=== PATIENT | female | born 1955 | race Caucasian/White ===

== ENCOUNTER → 2016-10-24 | Outpatient (REF) | payer OTHER ==
[~2016-10-24] MED LIST: AMLO5TAB2 PO; CALC600T57 PO; CHLO5CAP PO; MIRA33504 PO; PANT40TA2 PO; PRAV40TA2 PO; PROBCAP4 PO; SERT50TA PO; XANA0.5T PO
== END ==
LOC: M LAB REF 12:08
PROVIDERS: ATTEND Family Medicine
DX: D51.9 Vitamin B12 deficiency anemia, unspecified (principal)

== ENCOUNTER → 2017-03-16 | Outpatient (CLI) | payer OTHER ==
[~2017-03-16] MED LIST changes: -CHLO5CAP PO; +CHLO5CAP37 PO
--- NOTE | 2017-03-16 12:57 | REPMRS ---
Patient History The patient states she had a clinical breast exam today. Patient has history of endometrial cancer at age 25. Family history of unknown cancer in mother at age 54 and unknown cancer in brother at age 54. Took hormonal contraceptives for 2 months. Digital Mammo Screening Bilat: March 16, 2017 - Exam #: [id number] Bilateral CC and MLO view(s) were taken. Technologist: Angelina Morrison, Technologist Prior study comparison: February 26, 2016, bilateral digital mammo screening bilat performed at [facility]. February 23, 2015, bilateral digital mammo screening bilat performed at [facility]. FINDINGS: There are scattered fibroglandular densities. There has been no change in the appearance of the mammogram from the prior studies. There is a mild amount of residual fibroglandular tissue which is fairly symmetric. There is no interval development of dominant mass, architectural distortion, or clustered microcalcification suggestive of malignancy. ASSESSMENT: BI-RADS/ACR category 1 mammogram. Negative. Recommendation Routine screening mammogram in 1 year (for women over age 40). This mammogram was interpreted with the aid of an FDA-approved computer-aided dectection system. Electronically Signed By: Dilan Maldonado MD 03/16/17 [id number]
== END ==
LOC: M RAD 11:34
PROVIDERS: ATTEND Nurse Practitioner Women's Health
DX: Z12.31 Encounter for screening mammogram for malignant neoplasm of breast (principal)

== ENCOUNTER → 2017-05-12 | Outpatient (CLI) | payer OTHER ==
--- NOTE | 2017-05-12 15:51 | REP ---
PA and lateral chest: Comparison is 03/21/2016. Lung hernandez are significantly hyperinflated. This is chronic and unchanged. There are no infiltrates, effusions, masses or nodules. Cardiac size is normal. The lauren, mediastinum, and bony thorax are unremarkable. Impression: Chronic hyperinflation, possibly related to chronic lung disease. Otherwise, negative PA and lateral chest. Signed by Dilan Crisostomo MD 05/12/2017 03:44 P
== END ==
LOC: M RAD 13:30
PROVIDERS: ATTEND Family Medicine
DX: R05 Cough (principal)

== ENCOUNTER → 2018-03-22 | Outpatient (CLI) | payer OTHER | LOC: M RAD 10:07 | DX: Z12.31 Encounter for screening mammogram for malignant neoplasm of breast (principal) ==

== ENCOUNTER → 2018-05-19 | Outpatient (CLI) | payer OTHER ==
[~2018-05-19] MED LIST changes: -AMLO5TAB2 PO; +AMLO5TAB4 PO; -PANT40TA2 PO; +PANT40TA3 PO
--- NOTE | 2018-05-19 18:18 | REP ---
Clinical: Cough . Comparison: 05/12/2017 . Technique: PA and lateral. Findings: The mediastinum and cardiac silhouette are normal. The lung hernandez demonstrate chronic stable changes of the without acute consolidation, effusion, or pneumothorax. The skeletal structures are intact and normal. Impression: 1. No acute cardiopulmonary process. Electronically Signed by Duran Hidalgo MD 05/19/2018 06:09 P
== END ==
LOC: M LAB 13:54
PROVIDERS: ATTEND Family Medicine
DX: R05 Cough (principal)

== ENCOUNTER → 2018-10-07 | Outpatient (CLI) | payer OTHER ==
[~2018-10-07] MED LIST changes: -AMLO5TAB4 PO; +AMLO5TAB6 PO; +SERT-141 PO; -SERT50TA PO
--- NOTE | 2018-10-07 16:55 | REP ---
Foot series: Four views: History: Pain. Findings: Four views of the left foot show overall normal mineralization. No erosive changes seen. Bones joints and soft tissues are unremarkable. Impression: Negative radiographs of the left foot. Electronically Signed by Cas Denton MD 10/08/2018 07:58 A
== END ==
LOC: M WUC 10:26
PROVIDERS: ATTEND Physician Assistant
DX: M79.672 Pain in left foot (principal)

== ENCOUNTER → 2018-12-11 | Outpatient (CLI) | payer OTHER ==
--- NOTE | 2018-12-11 10:38 | REP ---
Right great toe series: Four views. History: Pain. Findings: Four views of the right great toe show no evidence of fracture or erosive change. Soft tissues are unremarkable. Impression: No acute bony abnormality. Electronically Signed by Cas Denton MD 12/11/2018 10:30 A
== END ==
LOC: M WUC 10:12
PROVIDERS: ATTEND Physician Assistant
DX: S90.211A Contusion of right great toe with damage to nail, initial encounter (principal); X58.XXXA Exposure to other specified factors, initial encounter; Y92.89 Other specified places as the place of occurrence of the external cause

== ENCOUNTER → 2019-04-04 | Outpatient (CLI) | payer OTHER ==
--- NOTE | 2019-04-04 15:39 | REPMRS ---
Patient History The patient states she had a clinical breast exam in 2018. Family history of unknown cancer at age 54 in mother, unknown cancer at age 54 in brother. Took hormonal contraceptives for 2 months. Digital Mammo Screening Bilat: April 04, 2019 - Exam #: [id number] Bilateral CC and MLO view(s) were taken. Technologist: Snehal Omalley, Technologist Prior study comparison: March 22, 2018, bilateral digital mammo screening bilat performed at [facility]. March 16, 2017, bilateral digital mammo screening bilat performed at [facility]. February 26, 2016, bilateral digital mammo screening bilat performed at [facility]. FINDINGS: There are scattered fibroglandular densities. There has been no change in the appearance of the mammogram from the prior studies. There is a mild amount of scattered fibroglandular density which is fairly symmetric. There is no interval development of dominant mass, architectural distortion, or grouped microcalcification suggestive of malignancy. 3-D tomosynthesis shows no additional findings. Assessment: BI-RADS/ACR category 1 mammogram. Negative Mammogram. Recommendation Routine screening mammogram of both breasts in 1 year (for women over age 40). This patient's Lifetime Breast Cancer Risk is estimated at 6.3 %. This mammogram was interpreted with the aid of an FDA-approved computer-aided dectection system. Electronically Signed By: Emerson Denton MD 04/04/19 [id number]
== END ==
LOC: M RAD 11:46
PROVIDERS: ATTEND Nurse Practitioner Women's Health
DX: Z12.31 Encounter for screening mammogram for malignant neoplasm of breast (principal)

== ENCOUNTER → 2020-05-28 | Outpatient (CLI) | payer OTHER ==
[~2020-05-28] MED LIST changes: +AMLO1TAB24 PO; -AMLO5TAB6 PO; +PANT40TA29 PO; -PANT40TA3 PO
--- NOTE | 2020-05-28 11:35 | REP ---
INDICATION: STRAIN COMPARISON: None. TECHNIQUE: Internal rotation, external rotation, and Y view. FINDINGS: Osteopenia and age-related degenerative changes noted. No acute fracture or dislocation. Acromioclavicular and glenohumeral joints are intact. IMPRESSION: Mild osteopenia and age-related changes. <Electronically signed by Duran Hidalgo > 05/28/20 [id number]
--- NOTE | 2020-05-28 11:36 | REP ---
INDICATION: STRAIN COMPARISON: None. TECHNIQUE: AP, lateral, flexion/extension, bilateral oblique, and open-mouth views. FINDINGS: Osteopenia and moderate multilevel disc osteophyte complexes are appreciated. Findings include endplate sclerosis, marginal osteophytosis, disc space narrowing and facet arthropathy. Alignment is relatively maintained. No acute fracture/compression injury or subluxation. Open mouth view demonstrates normal C1-C2 articulation and odontoid process. IMPRESSION: Moderate multilevel degenerative spondylosis. <Electronically signed by Duran Hidalgo > 05/28/20 [id number]
== END ==
LOC: M WUC 10:49
PROVIDERS: ATTEND Physician Assistant
DX: M47.812 Spondylosis without myelopathy or radiculopathy, cervical region (principal); M89.8X8 Other specified disorders of bone, other site; M19.011 Primary osteoarthritis, right shoulder

== ENCOUNTER → 2021-07-11 | Outpatient (CLI) | payer MEDICARE, OTHER | LOC: M WHC 10:27 | PROVIDERS: ATTEND Family Medicine | DX: Z12.31 Encounter for screening mammogram for malignant neoplasm of breast (principal); R92.2 Inconclusive mammogram ==

== ENCOUNTER → 2021-08-17 | Outpatient (CLI) | payer MEDICARE, OTHER ==
[~2021-08-17] MED LIST changes: +AMLO1TAB25 PO; +FAMO40TA3 PO; +MONT10TA97 PO; +SYMB80INH INH
== END ==
LOC: M LABSMTC 09:37
PROVIDERS: ATTEND Anesthesiology
DX: Z01.818 Encounter for other preprocedural examination (principal); Z20.822 Contact with and (suspected) exposure to COVID-19

== ENCOUNTER → 2021-12-03 | Outpatient (CLI) | payer MEDICARE, OTHER ==
[2021-12-03 10:56] LABS: ALBUMIN 3.7 GM/DL (3.2-5.2); ALT/SGPT 13 U/L (12-78); BILIRUBIN,TOTAL 0.5 MG/DL (0.2-1.0); BLOOD UREA NITROGEN 8 MG/DL (7-18); CARBON DIOXIDE LEVEL 28 MEQ/L (21-32); CHLORIDE LEVEL 107 MEQ/L (98-107); CHOLESTEROL LEVEL 208 MG/DL (<200); CHOLESTEROL RISK RATIO 3.014 (<5); CREATININE FOR GFR 0.77 MG/DL (0.55-1.30); GLOMERULAR FILTRATION RATE > 60.0 (>45); GLUCOSE, FASTING 93 MG/DL (70-100); HDL CHOLESTEROL 69 MG/DL (>40); LDL CHOLESTEROL 122 MG/DL (<100); NON-HDL-C 139 MG/DL; POTASSIUM SERUM 3.9 MEQ/L (3.5-5.1); SODIUM LEVEL 141 MEQ/L (136-145); TOTAL PROTEIN 6.9 GM/DL (6.4-8.2); TRIGLYCERIDES LEVEL 83 MG/DL (<150)
== END ==
LOC: M WUC 08:05
PROVIDERS: ATTEND Family Medicine
DX: I10 Essential (primary) hypertension (principal); E78.00 Pure hypercholesterolemia, unspecified

== ENCOUNTER → 2022-03-03 | Outpatient (CLI) | payer MEDICARE, OTHER ==
[2022-03-03 20:43] LABS: COMPLEMENT C3 128 MG/DL (90-180); COMPLEMENT C4 30 MG/DL (10-40)
== END ==
LOC: M WUC 15:34
PROVIDERS: ATTEND Ophthalmology
DX: H50.52 Exophoria (principal)

== ENCOUNTER → 2022-03-18 | Outpatient (REF) | payer MEDICARE, OTHER ==
[~2022-03-18] MED LIST changes: +FLUT0.003
[2022-03-18 13:46] LABS: BLOOD UREA NITROGEN 8 MG/DL (7-18); CREATININE FOR GFR 0.67 MG/DL (0.55-1.30); GLOMERULAR FILTRATION RATE > 60.0 (>45)
== END ==
LOC: M LABWUC 11:54
PROVIDERS: ATTEND Ophthalmology
DX: H50.52 Exophoria (principal)

== ENCOUNTER → 2022-03-21 | Outpatient (CLI) | payer MEDICARE, OTHER ==
[~2022-03-21] MED LIST changes: +PROHANCE 279.3MG/ML 15ML VIAL ONE
== END ==
LOC: M PLAIMG 10:01
PROVIDERS: ATTEND Ophthalmology
DX: H50.52 Exophoria (principal); I63.81 Other cerebral infarction due to occlusion or stenosis of small artery
CPT/HCPCS: 70543; 70553; A9576

== ENCOUNTER → 2022-03-24 | Outpatient (CLI) | payer MEDICARE, OTHER ==
[~2022-03-24] MED LIST changes: -PROHANCE 279.3MG/ML 15ML VIAL ONE
== END ==
LOC: M LABSMTC 09:38
PROVIDERS: ATTEND Anesthesiology
DX: Z01.812 Encounter for preprocedural laboratory examination (principal); Z20.822 Contact with and (suspected) exposure to COVID-19

== ENCOUNTER 2022-03-27 07:23 | Day surgery (SDC) | payer MEDICARE, OTHER ==
[~2022-03-27] VITALS: Ht 154.9 cm; Wt 58.1 kg
[~2022-03-27 07:23] MED LIST changes: +NS 1,000 ML IV ONE
[2022-03-27] MEDS ORDERED: propofoL 200 MG/20 ML VIAL As Ordered ONE (08:38)
[2022-03-27] MEDS ORDERED: LIDOCAINE 2% 100MG/5ML SDV (FOR ANES.) As Ordered ONE (08:38)
[2022-03-27 09:12] VITALS: BP 111/56
== END 2022-03-27 09:25 | disposition home or self-care (01) ==
LOC: M OPP 07:23
PROVIDERS: ATTEND Surgery
DX: Z12.11 Encounter for screening for malignant neoplasm of colon (principal); Z86.010 Personal history of colon polyps; Z79.51 Long term (current) use of inhaled steroids; Z79.899 Other long term (current) drug therapy; Z88.5 Allergy status to narcotic agent; F42.9 Obsessive-compulsive disorder, unspecified; E78.00 Pure hypercholesterolemia, unspecified; I10 Essential (primary) hypertension; L43.9 Lichen planus, unspecified; F41.9 Anxiety disorder, unspecified; F17.200 Nicotine dependence, unspecified, uncomplicated; Z85.42 Personal history of malignant neoplasm of other parts of uterus; Z85.71 Personal history of Hodgkin lymphoma; Z86.16 Personal history of COVID-19; Z80.49 Family history of malignant neoplasm of other genital organs; Z80.7 Family history of other malignant neoplasms of lymphoid, hematopoietic and related tissues; Z80.8 Family history of malignant neoplasm of other organs or systems

== ENCOUNTER → 2022-03-28 | Outpatient (CLI) | payer MEDICARE, OTHER ==
[~2022-03-28] MED LIST changes: -NS 1,000 ML IV ONE
== END ==
LOC: M WHC 11:04
PROVIDERS: ATTEND Ophthalmology
DX: H50.52 Exophoria (principal); I65.23 Occlusion and stenosis of bilateral carotid arteries

== ENCOUNTER → 2022-07-14 | Outpatient (CLI) | payer MEDICARE, OTHER | LOC: M WHC 09:09 | PROVIDERS: ATTEND Family Medicine | DX: Z12.31 Encounter for screening mammogram for malignant neoplasm of breast (principal) ==

== ENCOUNTER → 2022-07-15 | Outpatient (CLI) | payer MEDICARE, OTHER | LOC: M RAD 08:39 | PROVIDERS: ATTEND Family Medicine | DX: F17.211 Nicotine dependence, cigarettes, in remission (principal) ==

== ENCOUNTER 2023-05-18 05:41 | Observation (INO) | payer MEDICARE, OTHER ==
[~2023-05-18] VITALS: Ht 157.5 cm; Wt 60.7 kg
[2023-05-18] MEDS ORDERED: ALBU6.7H6 INH (05:48)
[2023-05-18] MEDS ORDERED: ASPI-161 PO (05:48)
[2023-05-18] MEDS ORDERED: IPRATROPIUM 0.5MG/ALBUTEROL 2.5MG INH SOL UD 3ML (DUONEB) NEB ONE (06:35)
[2023-05-18] MEDS ORDERED: ACETAMINOPHEN 325 MG TAB PO ONE (07:10)
[2023-05-18 07:42] LABS: BASO # 0.1 10^3/uL (0.0-0.2); BASO % 0.7 % (0.0-1.0); EOS # 0.5 10^3/uL (0.0-0.5); EOS % 5.1 % (0.0-3.0); HEMATOCRIT 42.3 % (36.0-47.0); HEMOGLOBIN 14.4 g/dl (12.0-15.5); LYMPH # 1.3 10^3/uL (1.5-5.0); LYMPH % 14.3 % (24.0-44.0); MEAN CORPUSCULAR HEMOGLOBIN 31.1 pg (27.0-33.0); MEAN CORPUSCULAR VOLUME 91.4 fl (80.0-96.0); MONO # 1.4 10^3/uL (0.0-0.8); MONO % 14.4 % (2.0-8.0); NEUTROPHILS # 6.1 10^3/uL (1.5-8.5); NEUTROPHILS % 65.3 % (36.0-66.0); PLATELET COUNT, AUTOMATED 261 10^3/uL (150-450); RED BLOOD COUNT 4.63 10^6/uL (4.00-5.40); WHITE BLOOD COUNT 9.4 10^3/uL (4.0-10.0)
[2023-05-18] MEDS: IPRATROPIUM 0.5MG/ALBUTEROL 2.5MG INH SOL UD 3ML (DUONEB) NEB SCH ×5 (08:20→21:35)
[2023-05-18] MEDS ORDERED: dexAMETHasone 20MG/5ML VIAL IV ONE (08:20)
[2023-05-18 08:24] LABS: BLOOD UREA NITROGEN 10 MG/DL (9-23); CALCIUM LEVEL 9.3 MG/DL (8.3-10.6); CARBON DIOXIDE LEVEL 21 MMOL/L (20-31); CHLORIDE LEVEL 109 MMOL/L (98-107); CREATININE FOR GFR 0.58 MG/DL (0.55-1.30); GLOMERULAR FILTRATION RATE > 60.0 (>45); GLUCOSE, FASTING 93 MG/DL (74-106); POTASSIUM SERUM 4.1 MMOL/L (3.5-5.1); SODIUM LEVEL 141 MMOL/L (136-145)
[2023-05-18] MEDS ORDERED: HOME MED LIST COMPLETE! XX SCH (11:15)
[2023-05-18] MEDS ORDERED: MED REC IN PROGRESS XX SCH (11:15)
[2023-05-18] MEDS ORDERED: MOM 30ML SUSPENSION UDC PO PRN (12:00)
[2023-05-18] MEDS ORDERED: ACETAMINOPHEN TAB 650MG DOSE (2X325MG) PO PRN (12:00)
[2023-05-18] MEDS ORDERED: ALBUTEROL 90 MCG/ACT 8GM HFA INHALER INH PRN (12:15)
[2023-05-18] MEDS ORDERED: AZITHROMYCIN INJ 500 MG, VIAL MATE ADAPTER 1 EACH in NS 250 ML IV SCH (13:00)
[2023-05-18] MEDS ORDERED: methylPREDNISolone 40MG 1ML VIAL IV SCH (13:00)
[2023-05-18 13:19] LABS: PROCALCITONIN <0.04 ng/ml
[2023-05-18 13:23] LABS: INR 1.06; PROTHROMBIN TIME 13.5 SECONDS (12.5-14.5)
[2023-05-18 13:24] LABS: PARTIAL THROMBOPLASTIN TIME 30.9 SECONDS (24.8-34.2)
[2023-05-18 14:21] VITALS: O2SAT 95
[2023-05-18] MEDS: methylPREDNISolone 40MG 1ML VIAL IV SCH ×2 (14:27→21:07)
[2023-05-18] MEDS: DOCUSATE SODIUM 100MG CAPSULE PO SCH ×2 (14:27→20:57)
[2023-05-18 14:50] VITALS: BP 121/58; TEMP 98.6; O2SAT 95
[2023-05-18] MEDS ORDERED: RIVAROXABAN 10MG TAB (XARELTO) PO SCH (18:00)
[2023-05-18] MEDS ORDERED: PRAVASTATIN 20 MG TAB PO SCH (21:00)
[2023-05-18 21:16] VITALS: BP 143/69; TEMP 98.4; O2SAT 94
[2023-05-18] MEDS: SYMBICORT 80/4.5MCG INHALER 6GM INH SCH (21:35)
[2023-05-19] MEDS: IPRATROPIUM 0.5MG/ALBUTEROL 2.5MG INH SOL UD 3ML (DUONEB) NEB SCH ×2 (03:05→07:27)
[2023-05-19 05:50] LABS: HEMATOCRIT 39.8 % (36.0-47.0); HEMOGLOBIN 13.3 g/dl (12.0-15.5); MEAN CORPUSCULAR HEMOGLOBIN 30.2 pg (27.0-33.0); MEAN CORPUSCULAR HGB CONC 33.4 g/dl (32.0-36.5); MEAN CORPUSCULAR VOLUME 90.2 fl (80.0-96.0); PLATELET COUNT, AUTOMATED 253 10^3/uL (150-450); RED BLOOD COUNT 4.41 10^6/uL (4.00-5.40); WHITE BLOOD COUNT 5.9 10^3/uL (4.0-10.0)
[2023-05-19 06:01] VITALS: BP 159/85; TEMP 98.4; O2SAT 95
[2023-05-19] MEDS: methylPREDNISolone 40MG 1ML VIAL IV SCH (06:06)
[2023-05-19 06:10] VITALS: BP 160/68
[2023-05-19 06:30] LABS: BLOOD UREA NITROGEN 8 MG/DL (9-23); CALCIUM LEVEL 9.5 MG/DL (8.3-10.6); CARBON DIOXIDE LEVEL 25 MMOL/L (20-31); CHLORIDE LEVEL 107 MMOL/L (98-107); CREATININE FOR GFR 0.57 MG/DL (0.55-1.30); GLOMERULAR FILTRATION RATE > 60.0 (>45); GLUCOSE, FASTING 134 MG/DL (74-106); POTASSIUM SERUM 4.1 MMOL/L (3.5-5.1); SODIUM LEVEL 140 MMOL/L (136-145)
[2023-05-19] MEDS: SYMBICORT 80/4.5MCG INHALER 6GM INH SCH (07:27)
[2023-05-19] MEDS ORDERED: FLUTICASONE PROP 0.05% NASAL SPRAY 16 GM (FLONASE) NARES SCH (09:00)
[2023-05-19] MEDS ORDERED: SERTRALINE HCL 50 MG TAB PO SCH (09:00)
[2023-05-19] MEDS: DOCUSATE SODIUM 100MG CAPSULE PO SCH (09:20)
[2023-05-19 09:21] VITALS: BP 141/60
[2023-05-19] MEDS ORDERED: FLUTISP NARES (10:49)
[2023-05-19] MEDS ORDERED: XARE10TA PO (10:49)
[2023-05-19] MEDS ORDERED: AZIT-12 PO (10:49)
[2023-05-19] MEDS ORDERED: IPRA0.00 NEB (10:49)
[2023-05-19] MEDS ORDERED: PRED10TA2 PO (10:54)
[2023-05-19] MEDS ORDERED: AZITHROMYCIN 250MG TABLET PO SCH (13:00)
[2023-05-19] MEDS ORDERED: PRAVASTATIN 20 MG TAB PO SCH (21:00)
== END 2023-05-19 12:21 | disposition home or self-care (01) ==
LOC: M ED 05:41 → M ED INP 05:42 → ENRESERV 13:38 → M MSPAV 14:47
PROVIDERS: ADMIT Student in an Organized Health Care Education/Training Program; ATTEND Student in an Organized Health Care Education/Training Program
DX: J06.9 Acute upper respiratory infection, unspecified (principal); B97 Viral agents as the cause of diseases classified elsewhere; J45.901 Unspecified asthma with (acute) exacerbation; E78.5 Hyperlipidemia, unspecified; I10 Essential (primary) hypertension; F17.218 Nicotine dependence, cigarettes, with other nicotine-induced disorders; F41.9 Anxiety disorder, unspecified; F32.A Depression, unspecified; Z79.82 Long term (current) use of aspirin; Z79.2 Long term (current) use of antibiotics; Z79.52 Long term (current) use of systemic steroids; Z79.51 Long term (current) use of inhaled steroids; Z79.899 Other long term (current) drug therapy; Z88.5 Allergy status to narcotic agent
CPT/HCPCS: 36415; 71045; 80048; 84145; 85025; 85027; 85610; 85730; 87486; 87581; 87633; 87798; 93005; 94640; 94760; 96365; 96375; 96376; 97161; 99285; G0378; J0456; J1100; J2920

== ENCOUNTER → 2023-07-15 | Outpatient (CLI) | payer MEDICARE, OTHER ==
[~2023-07-15] MED LIST changes: +ALBU6.7H6 INH; +ASPI-615 PO; +AZIT-12 PO; +FLUTISP NARES; +IPRA0.00 NEB; +PRED10TA2 PO; +XARE10TA PO
== END ==
LOC: M WHC 08:35
PROVIDERS: ATTEND Family Medicine
DX: Z12.31 Encounter for screening mammogram for malignant neoplasm of breast (principal); R92.323 Mammographic fibroglandular density, bilateral breasts

== ENCOUNTER 2023-08-16 07:56 | Emergency (ER) | payer MEDICARE, OTHER ==
[~2023-08-16] VITALS: Ht 157.5 cm; Wt 59.9 kg
[2023-08-16] MEDS: ONDANSETRON 4MG 2ML VIAL IV ONE (10:25)
[2023-08-16] MEDS: NS 1,000 ML IV ONE (10:40)
[2023-08-16] MEDS: KETOROLAC 30 MG/ML 1ML VIAL IV ONE (10:43)
[2023-08-16 11:00] LABS: BASO # 0.1 10^3/uL (0.0-0.2); BASO % 0.5 % (0.0-1.0); EOS % 0.3 % (0.0-3.0); HEMATOCRIT 42.5 % (36.0-47.0); HEMOGLOBIN 14.3 g/dl (12.0-15.5); LYMPH % 11.2 % (24.0-44.0); MEAN CORPUSCULAR HEMOGLOBIN 30.5 pg (27.0-33.0); MEAN CORPUSCULAR HGB CONC 33.6 g/dl (32.0-36.5); MEAN CORPUSCULAR VOLUME 90.6 fl (80.0-96.0); MONO # 0.6 10^3/uL (0.0-0.8); MONO % 6.4 % (2.0-8.0); NEUTROPHILS # 7.6 10^3/uL (1.5-8.5); NEUTROPHILS % 81.4 % (36.0-66.0); PLATELET COUNT, AUTOMATED 268 10^3/uL (150-450); RED BLOOD COUNT 4.69 10^6/uL (4.00-5.40); WHITE BLOOD COUNT 9.3 10^3/uL (4.0-10.0)
[2023-08-16 11:25] LABS: ALBUMIN 3.9 G/DL (3.2-5.2); BILIRUBIN,DIRECT 0.2 MG/DL (<0.4); BILIRUBIN,TOTAL 0.6 MG/DL (0.3-1.2); TOTAL PROTEIN 6.6 G/DL (5.7-8.2)
[2023-08-16] MEDS: ACETAMINOPHEN *IV* 1,000 MG in IV 1 EA IV ONE (11:58)
[2023-08-16 12:23] LABS: APPEARANCE, URINE CLEAR (CLEAR); BACTERIA, URINE AUTO NEGATIVE (NEGATIVE); BILIRUBIN, URINE AUTO NEGATIVE (NEGATIVE); BLOOD, URINE BLOOD NEGATIVE (NEGATIVE); COLOR, URINE YELLOW (YELLOW); GLUCOSE, URINE (UA) AUTO NEGATIVE (NEGATIVE); KETONE, URINE AUTO TRACE mg/dL (NEGATIVE); LEUKOCYTE ESTERASE, URINE AUTO NEGATIVE (NEGATIVE); MUCUS, URINE SMALL (NEGATIVE); NITRITE, URINE AUTO NEGATIVE (NEGATIVE); PROTEIN, URINE AUTO NEGATIVE (NEGATIVE); RBC, URINE AUTO 1 /HPF (0-3); SQUAMOUS EPITHELIAL CELL UR AU 0 /HPF (0-6); UROBILINOGEN, URINE AUTO 0.2 mg/dL (0.0-2.0); WBC, URINE AUTO 0 /HPF (0-3)
[2023-08-16] MEDS ORDERED: ONDA4TAB6 PO (13:44)
[2023-08-16] MEDS ORDERED: DICY-61 PO (13:44)
[2023-08-16 13:50] VITALS: BP 132/61; TEMP 98.5; O2SAT 94
== END 2023-08-16 14:24 | disposition home or self-care (01) ==
LOC: M ED 07:56
DX: R10.32 Left lower quadrant pain (principal); J44.9 Chronic obstructive pulmonary disease, unspecified; F41.9 Anxiety disorder, unspecified; F17.200 Nicotine dependence, unspecified, uncomplicated; Z88.5 Allergy status to narcotic agent; Z79.52 Long term (current) use of systemic steroids; Z79.82 Long term (current) use of aspirin; Z79.83 Long term (current) use of bisphosphonates; Z79.899 Other long term (current) drug therapy
CPT/HCPCS: 74176; 80047; 80076; 81001; 83690; 85025; 96374; 96375; 99284; J0131; J1885; J2405

== ENCOUNTER → 2023-08-20 | Outpatient (CLI) | payer MEDICARE, OTHER ==
[~2023-08-20] MED LIST changes: +DICY-61 PO; +ONDA4TAB6 PO
== END ==
LOC: M PLAIMG 13:59
PROVIDERS: ATTEND Family Medicine
DX: M47.26 Other spondylosis with radiculopathy, lumbar region (principal); M47.27 Other spondylosis with radiculopathy, lumbosacral region

== ENCOUNTER 2023-08-23 10:30 | Emergency (ER) | payer MEDICARE, OTHER ==
[~2023-08-23] VITALS: Ht 157.5 cm; Wt 59.5 kg
[2023-08-23] MEDS ORDERED: OXYC-517 PO (10:45)
[2023-08-23] MEDS: BISACODYL 10MG SUPP PR ONE (11:38)
[2023-08-23 12:58] VITALS: BP 135/63; TEMP 98.3; O2SAT 96
[2023-08-23] MEDS ORDERED: MIRA3350 PO (13:28)
== END 2023-08-23 13:38 | disposition home or self-care (01) ==
LOC: M ED 11:11
DX: K59.00 Constipation, unspecified (principal); F17.200 Nicotine dependence, unspecified, uncomplicated; Z88.5 Allergy status to narcotic agent; Z79.52 Long term (current) use of systemic steroids; Z79.82 Long term (current) use of aspirin; Z79.899 Other long term (current) drug therapy

== ENCOUNTER → 2024-03-17 | Outpatient (CLI) | payer MEDICARE, OTHER ==
[~2024-03-17] MED LIST changes: +MIRA3350 PO; +ONDA-282 PO; -ONDA4TAB6 PO; +OXYC-517 PO
== END ==
LOC: M RAD 09:43
PROVIDERS: ATTEND Family Medicine
DX: Z12.2 Encounter for screening for malignant neoplasm of respiratory organs (principal); F17.211 Nicotine dependence, cigarettes, in remission; J47.9 Bronchiectasis, uncomplicated; J43.9 Emphysema, unspecified

== ENCOUNTER → 2024-07-28 | Outpatient (CLI) | payer MEDICARE, OTHER | LOC: M WHC 12:31 | PROVIDERS: ATTEND Family Medicine | DX: Z12.31 Encounter for screening mammogram for malignant neoplasm of breast (principal); R92.313 Mammographic fatty tissue density, bilateral breasts ==

== ENCOUNTER → 2025-03-21 | Outpatient (REF) | payer MEDICARE, OTHER ==
[~2025-03-21] MED LIST changes: -PRAV40TA2 PO; +PRAV40TA85 PO
== END ==
LOC: M LAB REF 12:58
PROVIDERS: ATTEND Family Medicine
DX: E07.9 Disorder of thyroid, unspecified (principal)